=== PATIENT | male | born 1990 | race Caucasian/White ===

== ENCOUNTER 2020-10-19 10:40 | Emergency (ER) | payer OTHER, SELFPAY ==
[2020-10-19 11:03] VITALS: BP 127/63; PULSE 60; RESP 16; TEMP 36.4; O2SAT 100; BMI 28.1
--- NOTE | 2020-10-19 14:20 | DI.RAD.S_ITS ---
PROCEDURE: XR TIBIA FIBULA LT 2V INDICATIONS: pain left leg, ? injury TECHNIQUE: 2 views of the tibia and fibula were acquired. COMPARISON: None. FINDINGS: Bones: No fractures or dislocations. No suspicious bony lesions. Soft tissues: No suspicious soft tissue calcifications or masses. Soft tissue calcifications are probably related to phleboliths. IMPRESSION: No acute osseous abnormalities. Dictated by: Leslie Alva M.D. on 10/19/2020 at 16:59 Approved by: Leslie Alva M.D. on 10/19/2020 at 16:59
--- NOTE | 2020-10-19 14:20 | DI.US.S_ITS ---
PROCEDURE: US PERIPH VENOUS LOW EXTREM LT INDICATIONS: LEFT LOWER LEG PAIN AND SWELLING. HISTORY OF STROKE TECHNIQUE: Real-time imaging, as well as color and pulse Doppler interrogation, were performed of the lower extremity deep veins from the inguinal ligament to the popliteal fossa. COMPARISON: None. FINDINGS: The common femoral, femoral and popliteal veins are normally compressible, and free of intraluminal thrombus. Color and pulse Doppler demonstrate normal phasic intraluminal flow. There is normal augmentation response to distal compression maneuver. IMPRESSION: No DVT found. Dictated by: Gentry Suazo M.D. on 10/19/2020 at 14:57 Approved by: Gentry Suazo M.D. on 10/19/2020 at 14:57
[2020-10-19 14:23] VITALS: BP 109/54; PULSE 53; RESP 16; O2SAT 99
--- NOTE | 2020-10-19 14:44 | ED_ITS ---
HPI - Skin/Abscess/Foreign Bdy <SUNDAY Medeiros - Last Filed: 10/19/20 17:16> General Chief complaint: Skin/Abscess/Foreign Body Stated complaint: double vision/left lower leg swollen/pain x5 days Time Seen by Provider: 10/19/20 14:11 Source: patient Mode of arrival: Ambulatory Limitations: no limitations History of Present Illness HPI narrative: The patient is a 30-year-old male current marijuana user with history of stroke who presents with a chief complaint of left lower leg pain and swelling. He states has been ongoing for the past several days, comes and goes. He is concerned about the possibility of a DVT given his history of stroke, which she states was due to ?an infarct.He denies any chest pain or shortness of breath. He denies any recent immobility or surgeries. Related Data Previous Rx's Medication Instructions Recorded cephalexin 500 mg PO TID 7 Days #21 cap 10/19/20 Allergies Allergy/AdvReac Type Severity Reaction Status Date / Time No Known Drug Allergies Allergy Unverified 07/24/19 10:55 Review of Systems <SUNDAY Medeiros - Last Filed: 10/19/20 17:16> Review of Systems Narrative: GENERAL: Denies chills, fatigue, malaise, fever, sweats. HEENT: Denies sinus pain, ear pain, sore throat, difficulty swallowing, dizziness. RESPIRATORY: Denies dyspnea, cough, wheezing, hemoptysis, sputum. CARDIOVASCULAR: Denies chest pain, palpitations, orthopnea, edema, GASTROINTESTINAL: Denies nausea, vomiting, abdominal pain, diarrhea, constipation, melena. : Denies dysuria, frequency, incontinence, hematuria, urinary retention. MUSCULOSKELETAL: See HPI SKIN: See HPI NEUROLOGIC: Denies weakness, headache, numbness, change in speech, confusion, seizures, incoordination. PSYCHIATRIC: No concerning psychosocial issues. 12 point review of systems is negative except for those stated above Patient History <SUNDAY Medeiros - Last Filed: 10/19/20 17:16> Social History Smoking Status: Never smoker Smoking Status: Never smoker Substance Use Type: marijuana Exam <SUNDAY Medeiros - Last Filed: 10/19/20 17:16> Narrative Exam Narrative: GENERAL: This is a well-nourished, well-developed patient, in no acute distress HEAD: Atraumatic. Normocephalic. No temporal or scalp tenderness. EYES: Pupils equal round and reactive. Extraocular motions intact. No scleral icterus. No injection or drainage. ENT: Nose without bleeding, purulent drainage or septal hematoma. Wearing a mask Airway patent. NECK: Trachea midline. No JVD or lymphadenopathy. Supple, nontender, no meningeal signs. CARDIOVASCULAR: Regular rate and rhythm RESPIRATORY: No cough. No increased respiratory effort. No accessory muscle use. EXTREMITIES: See skin exam. No palpable abscess or fluctuance noted diffuse swelling left lower leg. Positive pedal pulses. Full range of motion noted left knee and ankle. Wiggling left toes. BACK: Nontender without deformity or crepitance. No flank tenderness. NEURO: AOx3. SKIN: 4 x 4 cm of erythema noted on anterior aspect of left lower leg no palpab le abscess or fluctuance Initial Vital Signs Initial Vital Signs: Vital Signs Temperature 97.6 F 10/19/20 11:03 Pulse Rate 60 10/19/20 11:03 Respiratory Rate 16 10/19/20 11:03 Blood Pressure 127/63 10/19/20 11:03 Pulse Oximetry 100 10/19/20 11:03 <Joon Costa MD - Last Filed: 10/20/20 12:15> Initial Vital Signs Initial Vital Signs: Vital Signs Temperature 97.6 F 10/19/20 11:03 Pulse Rate 60 10/19/20 11:03 Respiratory Rate 16 10/19/20 11:03 Blood Pressure 127/63 10/19/20 11:03 Pulse Oximetry 100 10/19/20 11:03 Scores <SUNDAY Medeiros - Last Filed: 10/19/20 17:16> GCS [place] coma scale eye opening: Spontaneous [place] coma scale verbal response: Orientated [place] coma scale motor response: Obey commands [place] coma scale total score: 15 Course <SUNDAY Medeiros - Last Filed: 10/19/20 17:16> Orders Ordered: ED Orders 10/19/20 14:20 US periph venous low extrem lt Stat XR tibia fibula LT 2V Stat Vital Signs Vital signs: Vital Signs - 8 hr 10/19/20 11:03 10/19/20 14:23 10/19/20 16:49 Temperature 97.6 F Pulse Rate 60 53 L 60 Respiratory Rate 16 16 16 Blood Pressure 127/63 109/54 L 120/73 Pulse Oximetry 100 99 99 <Joon Costa MD - Last Filed: 10/20/20 12:15> Orders Ordered: ED Orders 10/19/20 14:20 US periph venous low extrem lt Stat XR tibia fibula LT 2V Stat Vital Signs Vital signs: Vital Signs - 8 hr 10/19/20 11:03 10/19/20 14:23 10/19/20 16:49 Temperature 97.6 F Pulse Rate 60 53 L 60 Respiratory Rate 16 16 16 Blood Pressure 127/63 109/54 L 120/73 Pulse Oximetry 100 99 99 MDM - Skin/Abscess/Foreign Bdy <SUNDAY Medeiros - Last Filed: 10/19/20 17:16> Imaging Data US - DVT: Radiologist's Impression: [address] [place] [id number] ReportSigned Patient: Ellis Weldon JMR#: [id number]: 1990Acct:[id number]/Sex: te of Service: 10/19/20Loc: EDAccession Number: [id number] Procedure: US periph venous low extrem lt Ordering Provider: Cindy Chu PROCEDURE: US PERIPH VENOUS LOW EXTREM LT INDICATIONS: LEFT LOWER LEG PAIN AND SWELLING. HISTORY OF STROKE TECHNIQUE: Real-time imaging, as well as color and pulse Doppler interrogation, were performed of the lower extremity deep veins from the inguinal ligament to the popliteal fossa. COMPARISON: None. FINDINGS: The common femoral, femoral and popliteal veins are normally maurice sible, and free of intraluminal thrombus. Color and pulse Doppler demonstrate normal phasic intraluminal flow. There is normal augmentation response to distal compression maneuver. IMPRESSION: No DVT found. Dictated by: Gentry Suazo M.D. on 10/19/2020 at 14:57 Approved by: Gentry Suazo M.D. on 10/19/2020 at 14:57 Extremity x-ray #1: Radiologist's Impression: [address] [place] [id number] ReportSigned Patient: Ellis Weldon JMR#: [id number]: 1990Acct:[id number]/Sex: 30 MDate of Service: 10/19/20Loc: EDAccession Number: [id number] Procedure: XR tibia fibula LT 2V Ordering Provider: Cindy Chu [employer] PROCEDURE: XR TIBIA FIBULA LT 2V INDICATIONS: pain left leg, ? injury TECHNIQUE: 2 views of the tibia and fibula were acquired. COMPARISON: None. FINDINGS: Bones: No fractures or dislocations. No suspicious bony lesions. Soft tissues: No suspicious soft tissue calcifications or masses. Soft tissue calcifications are probably related to phleboliths. IMPRESSION: No acute osseous abnormalities. Dictated by: Leslie Alva M.D. on 10/19/2020 at 16:59 Approved by: Leslie Alva M.D. on 10/19/2020 at 16:59 [facility] Narrative Medical decision making narrative: The patient is a 30-year-old male who presents with a chief complaint of left lower leg swelling. DVT ruled out by ultrasound is is patient's primary concern given his history of stroke. X-ray is no acute findings. No palpable fluctuance or abscess that needs to be drained. Will treat for cellulitis with Keflex. Encouraged follow-up with primary care provider as well as ED return precautions of systemic illness. Patient has no questions or concerns upon discharge states understanding return precautions as well as follow-up care. Patient declines pain medicine. Patient declined work note. Discharge Plan Departure Patient Disposition: Home Clinical Impression: Cellulitis Qualifiers: Site of cellulitis: extremity Site of cellulitis of extremity: lower extremity Laterality: left Qualified Code(s): L03.116 - Cellulitis of left lower limb Instructions: DI for Cellulitis -- Adult, How To Perform RICE (Rest, Ice, Compress, Elevate) Activity Restrictions/Additional Instructions: Thank you for trusting us with your care today I sent a prescription of antibiotics to [facility] in [place] Please use rest ice compression elevation. Please follow-up with primary care provider in the next few days. Please come back to the ER for acute concerns such as decreased circulation your leg, chest pain etcetera Please take a probiotic or yogurt with your antibiotic to help prevent antibiotic related side effects Prescriptions: New cephalexin 500 mg capsule 500 mg PO TID 7 Days Qty: 21 RF: 0 <Joon Costa MD - Last Filed: 10/20/20 12:15> Cosign ED Attending Cosignature Attestation: I was immediately available in the department for consultation. This documentation has been reviewed and I agree with assessment and plan. Supervised by Joon Costa MD
[2020-10-19 16:49] VITALS: BP 120/73; PULSE 60; RESP 16; O2SAT 99
== END 2020-10-19 17:27 | disposition home or self-care (01) ==
PROVIDERS: Emergency Provider Nurse Practitioner Family
DX: L03.116 Cellulitis of left lower limb (principal)
CPT/HCPCS: 73590; 93971; 99283; 99284